=== PATIENT | male | born 1935 | race Caucasian/White ===

== ENCOUNTER 2019-10-27 16:14 | Inpatient (IN) | payer MEDICARE ==
[~2019-10-27] VITALS: Wt 80.8 kg
[2019-10-27] MEDS ORDERED: LOSARTAN POTASS50 M1 PO (17:33)
[2019-10-27] MEDS ORDERED: EXELON1 EACH T (17:35)
[2019-10-27] MEDS ORDERED: B121000 MCG/1 IM (17:35)
[2019-10-27] MEDS ORDERED: NAMENDA-28 PO (17:37)
[2019-10-27] MEDS ORDERED: METOPROLOL SUCC50 M1 PO (17:37)
[2019-10-27] MEDS ORDERED: REMERON15 M2 PO (17:38)
[2019-10-27] MEDS ORDERED: ELIQUIS2.5 M1 PO (17:40)
[2019-10-27 22:40] VITALS: BP 143/76
--- NOTE | 2019-10-27 22:40 | NUR ---
MANUEL IRVIN a 83 year old M admitted via ambulance from the ADMITTING as a voluntary admission. Arrived on unit at 2240. ALLERGIES: TETANUS IMMUNE GLOBIN, TETANUS TOXOIDS,BEE STINGS. Vital signs are: [id number] . The client-POA signed the following forms with stated understanding: Authorization For The Release of Medical Information, Consent to Voluntary Admission and Hospitalization, Consent and Release Forms/Receipt of Rights, Acknowledgement of Advance Directive Information, Behavioral Health Consent Form, and Informed Consent of Medications. Admitted under the services of Dr. ELDON PIEDRA,[facility]. A search was conducted and hazardous articles were removed. Client was oriented to the unit. MYRONTJ PATIENT ADMITTED ONTO THE UNIT WITH 2 AMBULANCE ATTENDANTS AND RELATIONSHIP MANAGER X 1. THIS NURSE AND MENTAL HEALTH WORKER SIGNED CLOTHING LIST. NO MEDICATIONS FROM FACILITY. REMOVED SILVER STRETCH WATCH FROM PATIENT'S LEFT WRIST ON ADMISSION. PATIENT CAME TO UNIT FROM [facility] [place] [facility]. PATIENT WITH GLASSES. NO HEARING AID OR DENTURES PRESENT. PATIENT WITH SMALL SCATTERED SCABS TO BILATERAL ANTERIAL LOWER EXTREMITIES AND TOP OF HEAD. PATIENT TOENAILS CHIPPED, DISCOLORED, AND THICK
--- NOTE | 2019-10-27 23:00 | NUR ---
MESSAGE LEFT FOR HOUSE PLAYER UPDATING ABOUT PATIENT ADMISSION AND LEGAL STATUS
--- NOTE | 2019-10-27 23:03 | NUR ---
DR COPPOLA CALLED ON PHONE NUMBER [phone] AND UPDATED ABOUT PATIENT AND PATIENT UNDER DR POLLARD FOR MEDICAL MANAGEMENT
--- NOTE | 2019-10-27 23:08 | NUR ---
DR RIVERS ON UNIT TO SEE PATIENT
--- NOTE | 2019-10-28 01:15 | NUR ---
P-CONFUSION, IRRITABLE, INTRUSIVE. DISRUPTIVE, DEMANDING, SEXUAL INAPPROPRIATE I-REDIRECTION WITH 1:1 THERAPEUTIC INTERVENTION AND PRESENT REALITY. EDUCATE AND ENCOURAGE MEDICATION COMPLIANT R-PATIENT CLIMBING OUT OF BED AT HS. PATIENT STATING "I WANT TO GO TO MY ROOM. WHO IS THAT PERSON OVER THERE? THIS IS NOT MY HOME". PATIENT REFUSED TO LAY DOWN IN BED AT THIS TIME. PATIENT UP TO [facility]. PATIENT DEMANDING NURSING STAFF TO TAKE HIM HOME. PATIENT YELLING OUT, SEXUALLY INAPPROPRIATE, AND HITTING OBJECTS. PATIENT STATING "I'LL LINE ALL THREE OF YOU UP AND KISS YOUR CROTCHES IF THAT'S WHAT IT TAKES FOR ME TO GO HOME". PATIENT DEMANDING NURSING TO TAKE HIM TO THE BATHROOM AND THEN STATED "I REALLY DON'T HAVE TO GO TO THE BATHROOM. I WAS JUST SEEING IF YOU WOULD TAKE ME. PATIENT OFFERED FLUIDS AND PATIENT THREW WATER ON FLOOR. PATIENT SPIT OUT ATIVAN 1MG PO. PATIENT MEDICATED WITH ATIVAN 1MG IM. ATIVAN WITH EFFECTIVE RESULTS AT THIS TIME AND PATIENT WITH NO BEHAVIORS AT THIS TIME P-CONTINUE TO ENCOURAGE MEDICATION COMPLIANCE, CONTINUE TO PRESENT REALITY, ENCOURAGE GROUP THERAPY WHILE AWAKE
--- NOTE | 2019-10-28 06:27 | NUR ---
PATIENT SLEPT 5 HOURS OF INTERRUPTED SLEEP THROUGHOUT SHIFT. Q 15 SAFETY CHECKS MAINTAINED. 24 HR chart check completed.
[2019-10-28 06:41] LABS: BASO % 0.3 % (0.0-1.0); EOS % 0.3 % (1.0-4.0); HEMATOCRIT 38.2 % (42.0-52.0); HEMOGLOBIN 12.1 g/dl (14.0-18.0); LYMPH # 1.1 10*3/uL (1.3-4.4); LYMPH % 9.5 % (27.0-41.0); MEAN CELL VOLUME 102.7 fl (80.0-94.0); MEAN CORPUSCULAR HGB 32.5 pg (27.0-31.0); MEAN CORPUSCULAR HGB CONC 31.7 g/dl (33.0-37.0); MEAN PLATELET VOLUME 9.9 fl (9.6-12.3); MONO # 0.6 10*3/uL (0.1-1.0); NEUT # 10.1 10*3/uL (2.3-7.9); NEUT % 84.6 % (47.0-73.0); PLATELET COUNT AUTOMATED 221 10*3/uL (130-400); RED BLOOD COUNT 3.72 10*6/uL (4.50-5.90); RED CELL DISTRI WIDTH 13.3 % (0-14.5); WHITE BLOOD COUNT 11.9 10*3/uL (4.8-10.8)
[2019-10-28 07:01] LABS: ALBUMIN 3.5 gm/dl (3.1-4.5); ALKALINE PHOSPHATASE 78 U/L (45-117); BUN 27 mg/dl (7-24); CHLORIDE 106 mmol/L (98-107); CHOLESTEROL 190 mg/dL (<200); CREATININE 1.37 mg/dL (0.70-1.30); HDL CHOLESTEROL 55 mg/dl (40-60); LDL CHOLESTEROL 122 mg/dL (9-159); POTASSIUM 4.3 mmol/L (3.5-5.1); SGOT/AST 15 IU/L (3-35); SGPT/ALT 18 U/L (12-78); SODIUM 137 mmol/L (136-145); TOTAL PROTEIN 7.6 gm/dL (6.4-8.2); TRIGLYCERIDES 66 mg/dl (<150); VLDL CHOLESTEROL 13 mg/dL (6-40)
[2019-10-28 07:52] LABS: VITAMIN D, 25-HYDROXY 25.3 ng/mL (30-100)
[2019-10-28 08:00] VITALS: BP 108/67
--- NOTE | 2019-10-28 11:13 | NUR ---
PSYCHOSOCIAL HX COMPLETED THIS DATE.
--- NOTE | 2019-10-28 11:56 | NUR ---
AM GROUP/CHADIAN NEW YEAR PT IN ATTENDANCE BUT SLEPT ENTIRE GROUP. PT DID NOT WAKE UNTIL LUNCH TIME. PT WILL CNTINUE TO ATTEND FUTURE GROUP SESSION AND BE ENCOURAGED TO PARTICIPATE TO BEST OF PT ABILITY.
[2019-10-28 15:31] LABS: BILIRUBIN NEGATIVE (NEGATIVE); CLARITY CLEAR (CLEAR); COLOR YELLOW (YELLOW); GLUCOSE NEGATIVE (NEGATIVE); KETONE TRACE (NEGATIVE)
[2019-10-28 15:32] LABS: BLOOD TRACE-INTACT (NEGATIVE); LEUKO ESTERASE NEGATIVE (NEGATIVE); NITRITE NEGATIVE (NEGATIVE); UROBILINOGEN 0.2 E.U./dl (0.2-1.0)
[2019-10-28 15:40] LABS: BACTERIA TRACE; EPITHELIAL CELLS 0-2; RBC 0-2 rbc/hpf (0-2); WBC 0-2 wbc/hpf (0-5)
--- NOTE | 2019-10-28 15:45 | NUR ---
PM GROUP/ART/MUSIC PT IN ATTENDANCE, BUT EXPRESSES AGITATION DUE TO WANTING TO GO HOME. THIS STAFF REDIRECTS PT MULTIPLE TIMES. PT SOON FORGETS ABOUT GOING HOME AND ATTEMPTS TO DO ART PROJECT AFTER OBSERVING ANOTHER PEER PAINTING. PT EXPRESSES CONFUSION BY STATING THINGS LIKE "MY SON IS IN PENITENTIARY" AND THEN "MY SON IS " THEN GOES ONTO STATE "MY SON IS ON HIS WAY HOME FROM PENITENTIARY TODAY". PT FINALLY RELAXES AND IS WATCHING A WESTERN. PT WILL CONTINUE OT ATTEND AND PARTICIPATE IN FUTURE GROUP SESSIONS TO BEST OF PT ABILITY.
--- NOTE | 2019-10-28 18:09 | NUR ---
PT REFUSED ASSESSMENT. PT STATED THE PRESIDENT IS ALLEN. MEDICATION COMPLIANT. DR POLLARD ON UNIT TO SEE PT AT 1020. PT AGITATED AT TIMES. EASILY REDIRECTED. BEHAVIORS MONITORED WIOTH Q15 MINUTE SAFETY CHECKS. SEE [facility] FLOWSHEET FOR SPECIFIC MONITORING.
[2019-10-28 20:00] VITALS: BP 132/70
--- NOTE | 2019-10-28 21:35 | NUR ---
P--CONFUSION, AGGITATION, POOR LONG AND SHORT TERM MEMORY I--TRIED TO REORIENT TO PLACE DATE AND TIME. DISCUSSED MEDICATIOS. EMOTIONAL SUPPORT PROVIDED. REDIRECTION PROVIDED. BROUGHT CLOSER TO NURSES DESK HE REFUSED TO STAY IN BED AND GAIT IS UNSTEADY. VISTARIL GIVEN FOR INCREASED AGGITATION, POUNDING ON TABLE AND YELLING R--I NEED TO PHONE TO CALL SOMEONE HERE. PUT ME IN BED, GET ME UP. UNABLE TO COMPREHEND REDIRECTION P--CONTINUE TO MONTIOR FOR CHANGES IN BEHAVIOR/MOOD. MONITOR Q 15 MINUTES AND PRN FOR SAFETY
--- NOTE | 2019-10-28 22:17 | NUR ---
APPEARS TO BE RESTING QUIET SINCE BEING MEDICATED WITH VISTARIL
--- NOTE | 2019-10-29 01:06 | NUR ---
ASSIST OF 2 NEEDED TO TOILET. INCONTINENT OF LARGE AMOUNT URINE. FOUL SMELLING FLATUS NOTED
--- NOTE | 2019-10-29 06:08 | NUR ---
SLEPT INTERMITTENTLY AFTER 2300PM
--- NOTE | 2019-10-29 07:23 | NUR ---
PT YELLING, CURSING, VERBALLY AND PHYSICALLY AGGRESSIVE WITH STAFF AT THIS TIME. PT HAS BEEN TOLIETED, FOOD AND FLUIDS OFFERED. ALL NONPHARMALOGICAL INTERVENTIONS PROVE INEFFECTIVE. BEHAVIORS CONTINUE TO ESCALATE. EDILBERTO PMHNP-BC ON UNIT AT THIS TIME. GAVE VERBAL ORDER TO GIVE PT ATIVAN 1MG IM AT THIS TIME. MEDICATION ADMINISTERED ORDERED. WILL MONITOR FOR EFFECTIVENESS.
[2019-10-29 07:51] VITALS: BP 140/80
--- NOTE | 2019-10-29 08:00 | NUR ---
PRN EFFECTIVE AT THIS TIME. PT RESTING QUIETLY
--- NOTE | 2019-10-29 08:58 | NUR ---
Patient resting quietly with no c/o discomfort. Respirations easy and regular. Vital signs stable. No overt distress. GIVENS,HUSSEIN
--- NOTE | 2019-10-29 17:14 | NUR ---
ALERT TO PERSON. ANGRY/IRRITABLE AND DISRUPTIVE MULTIPLE TIMES THROUGH OUT THE DAY. PT REDIRECTED WITH LITTLE TO NO EFFECTIVENESS. PT REMOVED FROM DINNINGROOM MULTIPLE TIMES. 1:1 PROVIDED FOR THERAPEUTIC COMMUNICATION HOWEVER INEFFECTIVE. BEHAVIORS MONITORED WITH Q15 MINUTE SAFETY CHECKS. SEE [facility] FLOWSHEET FOR SPECIFIC MONITORING
[2019-10-29 20:00] VITALS: BP 141/68
--- NOTE | 2019-10-29 20:40 | NUR ---
CLIENT FED SELF BUT ENDDEN UP THROWING THIS CUP ACROSS ROOM AND POURING PUDDING ON HIMSELF. YELLING AT STAFF. MEDICATION COMPLIANT. VISTARIL GIVEN TO HELP HIM RELAX
--- NOTE | 2019-10-29 22:27 | NUR ---
REFUSES ALL ORAL CARE. TRIED TO BITE STAFF WHEN ATTEMPTED. VISTARIL NOT EFFECTIVE LAST NIGHT. WILL CONTINUE TO MONITOR
--- NOTE | 2019-10-30 00:33 | NUR ---
DEPENDS CHANGED. CLIENT PERMITTED ORAL CARE. PLACED IN BED.
--- NOTE | 2019-10-30 00:42 | NUR ---
24 HR chart check completed.
--- NOTE | 2019-10-30 01:30 | NUR ---
UNABLE TO KEEP IN BED AND DRESSED. CUSSING AND YELLING AT STAFF. TOOK 3 STAFF TO GET HIM INTO CHAIR. BROUGHT TO DININGROOM FOR CLOSER OBSERVATION
--- NOTE | 2019-10-30 03:42 | NUR ---
has been sleeping soundly since being brought to the diningroom
--- NOTE | 2019-10-30 06:09 | NUR ---
SLEPT POOR. SLEPT LESS THAN 1.5 HOURS. UP TO BATHROOM TWICE PLUS CHANGED AFTER INCONTINENCE
[2019-10-30 07:38] VITALS: BP 113/64
--- NOTE | 2019-10-30 08:00 | NUR ---
Treatment Plan meeting was held with Dr. Grayson, FOSTER Romero, RN, AT, APPLIED TECHNOLOGIST-S and Service Supervisor in attendance. Plan for discharge when stable. Pt. came to [facility] from [place]. Will reach out to facility today to discuss discharge Planning.
--- NOTE | 2019-10-30 10:20 | NUR ---
Left Message with Sonia Garcia at [facility] [place] to discuss discharge Planning [phone].
--- NOTE | 2019-10-30 10:54 | NUR ---
Spoke with Sonia Garcia at [facility]. Pt. is LTC at facility and will return at discharge. Pt. was receiving Therapy at facility.
--- NOTE | 2019-10-30 11:52 | NUR ---
NO AM GROUP THERAPY DUE TO NEW PT ASSESSMENTS
--- NOTE | 2019-10-30 15:23 | NUR ---
P: IRRITABLE MOOD, CURSING, YELLING AT STAFF, BEING DISRUPTIVE IN DINING ROOM. I: ONE ON ONE AND REDIRECTION, CHANGE OF ENVIRONMENT WITH LOW STIMULI AND PROVIDING SPACE. R: CHANGE OF ENVIRONMENT AND PROVIDING SPACE EFFECTIVE. PATIENT IS ALERT TO SELF WITH CONFUSION; ABLE TO VOICE NEEDS. RECALLS MONTH FEBRUARY OR MARCH. MOOD IS ANGRY/IRRITABLE. DENIES ANY HALLUCINATIONS, DELUSIONS, HI/SI OR PAIN. CAN BE RESTLESS AND DEMANDING AT TIMES. 1-2 PERSON ASSIST WITH ACTIVITIES OF DAILY LIVING. CONTINENT OF BOWEL AND BLADDER. SET UP FOR MEALS, INTAKES ARE GOOD WITH ADEQUATE FLUIDS. Q 15 MINUTES SAFETY CHECKS. MEDICATION COMPLAINT. P: CONTINUE TO MONITOR MOOD, AGGRESSION, VOICED THOUGHTS OF HI/SI. PROVIDE ONE ON ONE AND REDIRECTION NEEDED
--- NOTE | 2019-10-30 15:36 | NUR ---
PM GROUP PT WAS BROUGHT INTO GROUP AND WAS AGITATED AND TRYING TO GET OUT OF HIS CHAIR WITH NO AWARENESS FOR HIS SAFETY. PT WAS VERBALLY ABUSIVE TOWARD THIS POWDER WORKER TNT AND WAS REMOVED BY THE NURSE. UPON LEAVING GROUP, PT ATTEMPTED TO KICK ME AND STATED, "WALK BY ME AGAIN AND I WILL KICK YOU!" PT WAS TOLD THAT THIS WAS NOT NICE AND I WAS SORRY THAT HE FELT THAT WAY. PT STATED, "I WISH I WOULD'VE GOTTEN YOU, I WILL DREAM ABOUT KICKING YOU FOR THE REST OF MY LIFE! YOU GO TO HELL!"
[2019-10-30 19:50] VITALS: BP 134/61
--- NOTE | 2019-10-30 20:45 | NUR ---
EVENING/LEISURE SKILLS PT UNABLE TO ATTEND/PARTICIPATE DUE TO AGITATION/CONFUSION THAT INTERUPTS PEERS.
--- NOTE | 2019-10-30 21:41 | NUR ---
Patient alert to self only with confusion noted. Memory deficits noted. Patient calm and cooperative with underlying irritability noted at this time. No overt s/s of responding to internal stimuli noted at this time. Patient compliant with HS medications without any difficulty. Attempted to redirect/reorient but unreceptive at this time. Attempted to provide 1:1 for emotional support but patient is drowsy at this time. Patient in gerichair across from nurses' desk to observe moods/behaviors. Plan to continue to encourage medication compliance and continue to provide emotional support. Also continue to redirect/reorient when needed/appropriate. Will continue to monitor moods/behaviors. Q 15 minute safety checks continued and maintained. See [facility] flowsheet for further documentation.
[2019-10-31 07:07] LABS: ALBUMIN 3.2 gm/dl (3.1-4.5); POTASSIUM 4.7 mmol/L (3.5-5.1)
[2019-10-31 07:08] LABS: CREATININE 1.38 mg/dL (0.70-1.30); TOTAL PROTEIN 7.1 gm/dL (6.4-8.2)
--- NOTE | 2019-10-31 07:56 | NUR ---
DR. LIVINGSTON NOTIFIED OF PODIARTY CONSULT FOR NAIL CARE.
--- NOTE | 2019-10-31 08:00 | NUR ---
Treatment Plan meeting was held with Dr. Grayson, FOSTER Romero, RN, AT, ESTIMATOR PRINTING-S and Inspector Casing in attendance. Plan for discharge Next week. Pt. will return to [place] [facility] [place] at discharge.
[2019-10-31 08:14] VITALS: BP 123/70
--- NOTE | 2019-10-31 09:15 | NUR ---
Occupational therapy orders received and OT Evaluation completed in fll on floor three. Patient precautions include fall risk, chair alarm, decreased cognition, poor command follow. Per OT eval, OT recommends patient return to his SNF. Patient would benefit from continued OT treatment to maximize safety and independence with ADLs and [place], [address]. Thank you for the referral. Carmen Boyer, OTR/L
--- NOTE | 2019-10-31 11:16 | NUR ---
PHYSICAL THERAPY Eval completed as able full report to follow moderate level of complexity 60684. Recomend return to facility with f/u PT as appropriate. Pt unable to give any background reg functional status, spoke w CM/nsg and do not have any information reg pt's prior level of function. Obtained phone number for facility where pt resides and left message on therapy answering system to contact PT dept, no pt information was left on message only to contact PT dept will await further information regarding pt and set goals accordingly. Sofia Mijares PT Sofia Mijares PT
--- NOTE | 2019-10-31 11:43 | NUR ---
AM GROUP PT IS UNABLE TO ATTEND GROUP THERAPY AT THIS TIME DUE TO COGNITIVE IMPAIRMENT AND DISRUPTION TO THE YI MILIEU. PT WAS IN THE DYE WITH NURSE.
--- NOTE | 2019-10-31 15:27 | NUR ---
Shift chart check completed.
--- NOTE | 2019-10-31 15:45 | NUR ---
PM GROUP PT IS UNABLE TO ATTEND GROUP THERAPY AT THIS TIME DUE TO COGNITIVE IMPAIRMENT AND BEING A DISRUPTION TO THE YI MILIEU
--- NOTE | 2019-10-31 18:15 | NUR ---
PATIENT IS ALERT TO SELF WITH CONFUSION; ABLE TO VOICE NEEDS. LONG/SHORT TERM MEMORY DIFICITS. MOOD IS DEPRESSED AND IRRITABLE AT TIMES. CAN BE DEMAMDING AT TIMES. NO VOICED STATEMENTS OF HI/SI OR PAIN. NO RESPONSE TO INTERNAL STIMULI OBSERVED. MEDICATION COMPLIANT. Q 15 MINUTE SAFETY CHECKS MAINTAINED. 2 PERSON ASSIST WITH ACTIVITIES OF DAILY LIVING. CONTINENT OF BOWEL AND BLADDER, SET UP FOR MEALS, INTAKES ARE FAIR. INTERACTIVE WITH STAFF AND ATTENDED AFTERNOON GROUP SESSION. NO AGGRESSION OBSERVED. CONTINUE TO MONITOR FOR AGGRESSION. PROVIDE ONE ON ONE AND REDIRECTION/ORIENTATION NEEDED.
[2019-10-31 20:00] VITALS: BP 110/62
--- NOTE | 2019-10-31 20:30 | NUR ---
EVENING/LEISURE SKILLS PT IN ATTENDANCE BUT SLEEPING ON AND OFF IN CHAIR. PT REMAINED QUIERT TO SELF WHEN AWAKE WITH NO AGITATION OR AGGRESSION EXPRESSED AT THIS TIME. PT WILL CONTINUE TO ATTEND FUTURE GROUP SESSIONS.
--- NOTE | 2019-10-31 21:28 | NUR ---
Patient alert to self only with confusion noted. Memory deficits noted. Patient calm and cooperative with underlying irritability noted at this time. No overt s/s of responding to internal stimuli noted at this time. Patient compliant with HS medications without any difficulty. Redirected/reoriented when needed/appropriate. Provided 1:1 for emotional support. Patient in gerichair in diningroom during snacks with other patients. Patient talking to other patients and staff. Plan to continue to encourage medication compliance and continue to provide emotional support. Also continue to redirect/reorient when needed/appropriate. Will continue to monitor moods/behaviors. Q 15 minute safety checks continued and maintained. See [facility] flowsheet for further documentation.
--- NOTE | 2019-11-01 00:08 | NUR ---
24 HR chart check completed.
--- NOTE | 2019-11-01 05:47 | NUR ---
Patient slept approx. 6.5 hours throughout shift. Q 15 minute safety checks continued and maintained.
--- NOTE | 2019-11-01 07:20 | NUR ---
PHYSICAL THERAPY Patient seen this am for therapy visit and was sitting semi reclined in activity room Aniya chair upon therapist arrival. Patient identified by name / and presented with increased cervical flexion contracture. Patient needed both verbal / tactile cues to improve seated posture, especially cervical extension secondary to chin resting on chest. Patient very guarded with increased cervical / upper trap tightness and performed multiple sit to stand transfers at rail, MOD/COMMUNITY WORKER x 2, including B UE handrail support. Patient demonstrated severe "slouched" posture, requiring v/c's to correct. Patient states it is painful to lift head up and tolerated approx 1 minute static stand each trial. Patient returned to Aniya chair and tranported to activity room for breakfast. OT assistant drafter was present for observation only this session as patient remained under [facility] staff Supervision. Will continue per POC as tolerated, total treatment time 14 minutes. Devonte Dwyer, ROLL OUT MANAGER
--- NOTE | 2019-11-01 07:30 | NUR ---
OT NOTE Pt was seen this A.M. 1:1 for 15 minute OT session with PROCESSING TECHNICIAN and nursing staff present for observation only. Upon arrival pt was sitting semi reclined in the baldo chair in the dining umanzor. Pt identified by name and and had no complaints at this time. Pt was taken out into the hallway where he completed multiple sit to stand transfers from chair level with modA X 2 and use of hand rail for UE support. Challenged pt's static standing tolerance needed for increased I in self care tasks and functional transfers, pt was able to tolerate aprox 40-60 seconds at a time before sitting due to fatigue. throughout pt required verbal prompts for correcting his posture and holding his head up. Pt was left sitting upright in the baldo chair in the dining umanzor with body alarm activated for safety and under [facility] staff supervision. Continue with POC as able. FABRICE Massey/Daniel
[2019-11-01 08:27] VITALS: BP 135/62
--- NOTE | 2019-11-01 09:05 | NUR ---
DENNIS TALENT MANAGEMENT SPECIALIST ON UNIT TO SEE PT AT THIS TIME.
--- NOTE | 2019-11-01 11:40 | NUR ---
AM GROUP/EXERCISE AND BRAIN GAMES PT ATTENDED MORNING GROUP THERAPY AND PARTICIPATED IN THE EXERCISES TO THE BEST OF HIS ABILITY. PT BECAME FOCUSED ON USING THE PHONE AND REPEATEDLY ASKED BUT WAS PATIENT WHEN TOLD THAT HE COULD AT 11:30 WHEN GROUP WAS OVER. PT WAS ASKED, "DO YOU WANT TO CALL YOUR ?" PT STATED, "NO, SHE'S " AT THE END OF GROUP PT WAS GIVEN THE PHONE AND SPOKE TO , ADRIANA AND RETURNED TO THE DAY ROOM. WHEN ASKED IF HE SPOKE TO HIS ? PT STATED, "NO, I BURIED HER" PT WAS REMINDED THAT HE JUST SPOKE WITH HER ON THE PHONE. PT STATED, "NO I DIDN'T, I DIDN'T TALK TO ANYONE ON THE PHONE"
--- NOTE | 2019-11-01 13:48 | NUR ---
Treatment Plan meeting was held with Dr. Grayson, FOSTER Romero, RN, AT, CASE RESOLUTION SPECIALIST-S and Educational Psychologist in attendance. Plan for discharge Next week with return to [facility].
--- NOTE | 2019-11-01 13:49 | NUR ---
Clinical Updates faxed to [facility].
--- NOTE | 2019-11-01 15:38 | NUR ---
PM GROUP/WATERCOLORS AND MUSIC PT WAS PRESENT FOR AFTERNOON GROUP THERAPY RECLINED IN A RAISA CHAIR LISTENING TO THE MUSIC WITH HIS EYES SHUT. PT WAS NOTED TO BE TAPPING ALONG TO THE SONGS. PT EXHIBITED NO AGITATION OR AGGRESSION WHILE IN GROUP.
--- NOTE | 2019-11-01 18:24 | NUR ---
P- CONFUSION. PT CONTINUES TO BELIEVE HIS HAS DEPSITE REMINDERS AND TALKING TO HER ON THE PHONE THIS AFTERNOON. NO PHYSICALLY AGGRESSIVE BEHAVIORS DISPLAYED THIS SHIFT. PT PLEASANT AND COOPERATIVE. I- ORIENTATION, MOOD AND BEHAVIORS ASSESSED. ASSESSED PT FOR SI/HI, INTENT OR PLAN. ASSESSED PT FOR S/S HALLUCINATIONS, PARANOIA AND/OR DELUSIONS. MEDICATIONS ADMINISTERED PER PHYSICIAN'S ORDERS. ASSISTANCE WITH ADL CARE PROVIDED NEEDED. ENCOURAGED PT TO ATTEND AND PARTICIPATE IN YI MILIEU GROUPS AND ACTIVITIES. R- PT IS ALERT AND ORIENTED TO NAME ONLY. OTHERWISE CONFUSED. WHEN ASKED PT WHERE HE WAS THIS MORNING PT STATES "HERE". THIS RN ASKED PT WHAT KIND OF PLACE "HERE" WAS, PT STATES "I DON'T KNOW, BUT IT'S A NICE PLACE". ST/LT MEMORY GAPS NOTED. RESPS EASY AND EVEN ON ROOM AIR. MOOD STABLE THIS DATE WITH APPROPRIATE AFFECT. PT CALM, PLEASANT AND COOPERATIVE. PT DENIES SI/HI, INTENT OR PLAN. PT DENIES HALLUCINATIONS, NO RESPONSE TO INTERNAL STIMULI NOTED. PT CONTINUES TO BELIEVE HIS HAS PASSED DESPITE STAFF REMINDERS TO THE CONTRARY AND THE PT HIMSELF TALKED TO HER ON THE PHONE THIS AFTERNOON. PT IS MED COMPLIANT WITHOUT DIFFICULTY. NO PHYSICALLY AGGRESSIVE BEHAVIORS DISPLAYED. NO DISTRESS NOTED. P- PLAN TO CONTINUE CURRENT TREATMENT, CONTINUE TO MONITOR MOOD AND BEHAVIORS, PROVIDE APPROPRIATE REORIENTATION, REDIRECTION AND 1:1 NEEDED. CONTINUE TO ENCOURAGE MEDICATION COMPLIANCE WELL GROUP ATTENDANCE AND PARTICIPATION.
[2019-11-01 19:42] VITALS: BP 132/65
--- NOTE | 2019-11-01 21:00 | NUR ---
P--CONFUSION, POOR GAIT I--GAVE CLIENT 1:1 TIME. REVIEWED MEDICATION. REPOSITIONED NECK. OFFERED EMOTIONAL SUPPORT. MONITORED BEHAVIORS R--MY NECK HURTS. ORIENTED TO SELF. MEDICATION COMPLIANT. NO BEHAVIORS NOTED P--MONITOR FOR CHANGES IN MOOD/BEHAVIOR. MONITOR Q 15 MINUTES AND PRN FOR SAFETY
--- NOTE | 2019-11-02 00:43 | NUR ---
24 HR chart check completed.
--- NOTE | 2019-11-02 07:23 | NUR ---
OT NOTE Pt was seen this A.M. 1:1 for 23 minute OT session with PLATING TECHNICIAN and nursing staff present for observation only. Upon arrival pt was sitting upright in the baldo chair in the dining umanzor. Pt identified by name and and had no complaints at this time. Pt was taken out into the hallway where he completed sit to stand from chair level with modA x 2 and use of w/w for UE support. Challenged pt's static standing tolerance needed for increased I in self care tasks and functional transfers, pt was able to tolerate aprox 3 minutes at a time before sitting due to fatigue. Functional mobility was then completed to his bedroom with Grace and use of w/w. Pt then sat sink side while completing grooming task of washing his hands and face with Grace for assist with set up of task and sequencing. Throughout entire session pt was able to keep his eyes open 100% of the time with no verbal prompts. Pt was left sitting semi reclined in the baldo chair in the dining umanzor with lap tray in place, body alarm activated for safety, and under [facility] staff supervision. Continue with POC as able. FABRICE Massey/Daniel
--- NOTE | 2019-11-02 07:45 | NUR ---
PT AWAKE, ALERT AND VERBAL. PLEASANT. RESPS EASY AND EVEN ON ROOM AIR. EATING BREAKFAST IN DINING ROOM WITH PEERS. NO DISTRESS NOTED.
--- NOTE | 2019-11-02 07:53 | NUR ---
PHYSICAL THERAPY Patient seen this am for therapy visit and was semi reclined in activity room Aniya chair upon therapist arrival. Patient identified by name / and presented with improved seated "head up" posture. OT printer floor covering assistant was present for observation only this session as patient reports no new c/o's at this time. Patient transfers sit to stand MOD A x 2 and ambulates 40'x 1, use of wh walker, MIN A, while demonstrating decreased "shuffling" stride. Patient needed v/c to increase "head up" posture with increased stride and improved walker safety / navigation. Patient also fatigues quickly and returned to Aniya chair in activity room. Patient remained under [facility] staff Supervision with body alarm for safety. Will continue per POC as tolerated. Total treatment time 14 minutes. Devonte Dwyer, THERMOFORMING MACHINE OPERATOR
--- NOTE | 2019-11-02 08:00 | NUR ---
Treatment Plan meeting was held with Dr. Grayson, RN, AT and Business Management Analyst. Plan for discharge next week with return to [place] [facility] [place].
[2019-11-02 08:08] VITALS: BP 125/64
--- NOTE | 2019-11-02 08:08 | NUR ---
PT MED COMPLIANT WITH AM MED PASS. ALERT, VERBAL AND PLEASANTLY CONFUSED. NO AGGRESSIVE BEHAVIORS AT THIS TIME. NO DISTRESS NOTED.
--- NOTE | 2019-11-02 09:37 | NUR ---
ON UNIT TO SEE PT AT THIS TIME, UPDATE GIVEN.
--- NOTE | 2019-11-02 11:45 | NUR ---
AM GROUP PT WAS PRESENT FOR MORNING GROUP THERAPY RECLINED IN A RAISA CHAIR SLEEPING. PT DID NOT WAKE DURING GROUP
--- NOTE | 2019-11-02 11:45 | NUR ---
PT RESTING QUIETLY IN CHAIR AWAITING LUNCH AT THIS TIME. NO BEHAVIORS OF THIS TIME.
--- NOTE | 2019-11-02 15:38 | NUR ---
PM GROUP PT WAS PRESENT FOR AFTERNOON GROUP THERAPY BUT IS UNABLE TO PARTICIPATE AT THIS TIME DUE TO COGNITIVE IMPAIRMENT. PT SAT QUIETLY AND OBSERVED, LISTENED TO MUSIC AND NAPPEC. PT EXHIBITED NO AGITATION OR AGGRESSION WHILE IN GROUP
--- NOTE | 2019-11-02 16:57 | NUR ---
P- PLEASANTLY CONFUSED. INCREASED RESTLESSNESS NOTED IN EVENING HOURS, PT BECOMING AGITATED UPON ATTEMPTS TO REDIRECT. I- ORIENTATION, MOOD AND BEHAVIORS ASSESSED. ASSESSED OT FOR SI/HI, INTENT OR PLAN. ASSESSED PT FOR S/S HALLUCINATIONS, PARANOIA AND/OR DELUSIONS. MEDICATIONS ADMINISTERED PER PHYSICIAN'S ORDERS. ASSISTANCE WITH ADL CARE PROVIDED NEEDED. ENCOURAGED PT TO ATTEND AND PARTICIPATE IN YI [facility] GROUPS AND ACTIVITIES. R- PT IS ALERT AND ORIENTED TO SELF ONLY, OTHERWISE CONFUSED. ST/LT MEMORY GAPS NOTED. RESPS EASY AND EVEN ON ROOM AIR. MOOD STABLE AND PLEASANT THIS AM. PT DENIES SI/HI, INTENT OR PLAN. PT DENIES HALLUCINATIONS, NO RESPONSE TO INTERNAL STIMULI NOTED. NO PARANOIA OR DELUSIONS NOTED. MEDICATION COMPLIANT WITHOUT DIFFICULTY. BEGINNING AROUND 4:30PM PT HAS BEEN NOTED WITH INCREASED CONFUSION, RESTLESSNESS AND IRRITABILITY, PT BECOMING SLIGHTLY AGITATED UPON ATTEMPTS TO REDIRECT, PT STATING "GET ME THE HELL OUT OF HERE", UPON ATTEMPTS TO REORIENT/REDIRECT PT HE BECOMES VERBALLY AGITATED STATING "GOD DAMN IT YOU'RE USELESS" TOLIETING COMPLETED. PT GIVEN FOOD/FLUIDS. PT IN LOW STIMULATION AREA AT THIS TIME FOR CALMING EATING DINNER AT PRESENT. NO DISTRESS NOTED. P- PLAN TO CONTINUE CURRENT TREATMENT, CONTINUE TO MONITOR MOOD AND BEHAVIORS, PROVIDE APPROPRIATE REORIENTATION, REDIRECTION AND 1:1 NEEDED. CONTINUE TO ENCOURAGE MEDICATION COMPLIANCE WELL GROUP ATTENDANCE AND PARTICIPATION.
--- NOTE | 2019-11-02 17:17 | NUR ---
PT BEHAVIORS CONTINUE TO ESCALATE, PT CONTINUES TO BE RESTLESS, IRRITABLE AND AGITATED UPON REDIRECTION, MULTIPLE NONPHARMALOGICAL ATTEMPTS TO CALM PT HAVE BEEN MADE, TOLIETED, FOOD AND FLUIDS GIVEN, 1:1, REDIRECTION, REORIENTATION, REPOSITIONING AND DISTRACTION HAVE ALL PROVEN INEFFECTIVE. PT BECOMING PHYSICALLY THREATENING, SHAKING FIST AT STAFF. PT GIVEN PRN VISTARIL 50MG PO AT THIS TIME FOR INCREASED AGITATION/AGGRESSION. WILL MONITOR FOR MEDICATION EFFECTIVENESS.
--- NOTE | 2019-11-02 17:47 | NUR ---
SHIFT CHART CHECK COMPLETED.
[2019-11-02 19:52] VITALS: BP 120/62
--- NOTE | 2019-11-03 01:10 | NUR ---
HAS BEEN UP SINCE 2230PM. ONLY LAYED IN BED FOR SHORT TIME. UNABLE TO REDIRECT TO PLACE AND TIME. PLACED IN RAISA CHAIR AND BROUGHT CLOSER TO NURSES FOR CLOSER MONITORING. APPEARS TO HAVE VISUAL/TACTILE HALLUCINATIONS. REACHING FOR UNSEEN THINGS. WILL CONTINUE TO MONITOR FOR CHANGES IN BEHAVIOR/MOOD. EMOTIONAL SUPPORT PROVIDED
--- NOTE | 2019-11-03 04:59 | NUR ---
24 HR chart check completed.
--- NOTE | 2019-11-03 05:41 | NUR ---
BROKEN 3.5 HOURS. UP IN CHAIR WITH INTERMITTENT OUTBURST OF AGGITATION AND YELLING.
--- NOTE | 2019-11-03 07:24 | NUR ---
OT NOTE Pt was seen this A.M. 1:1 for 25 minute OT session with nursing staff present for observation only. Upon arrival pt was sitting upright in the dining umanzor asleep in his baldo chair with lap tray and body alarm in place. Pt was easily aroused and identified by name and . Pt had no complaints at this time. Pt completed BUE towel exercises over all planes of motion for 1 X 15 to increase and restore maximum functional use and an emphasis on triceps for increased I in functional transfers. Pt was then taken out into the hallway where he completed multiple sit to stand transfers from chair level with modA and use of hand rail for UE support. Challenged pt's static standing tolerance needed for increased I and enhanced endurance, pt was able to tolerate aprox 60 seconds at a time before sitting due to fatigue. Throughout pt required verbal prompts for correcting his posture and holding his head up. Pt then completed LB dressing while doffing and donning B socks with Grace for inital start over his toes. Pt was left sitting upright in the baldo chair in the dining umanzor with lap tray in place, body alarm activated for safety, and under [facility] staff supervision. Throughout entire session pt was awake and talkative with this therapist. Continue with POC as able. EFE Massey
[2019-11-03 08:04] VITALS: BP 108/74
--- NOTE | 2019-11-03 11:40 | NUR ---
AM GROUP/BEADING PT WAS IN A RAISA CHAIR WITH THE TRAY ON AT THE START OF GROUP AND ASKED ME, "CAN YOU PUSH ME DOWN TO MY ROOM?" INQUIRED OF PT WHAT HE NEEDED IN HIS ROOM? PT STATED, "MY DECK OF CARDS". PT WAS GIVEN A DECK OF CARDS AND "PLAYED" WITH THEM THE ENTIRE GROUP. PT WAS QUIET AND FOCUSED. PT EXPRESSED NO AGITATION OR AGGRESSION WHILE IN GROUP
--- NOTE | 2019-11-03 12:37 | NUR ---
PATIENT IS ALERT AND ORIENTED TO PERSON WITH CONFUSION; AWARE OF BEING IN THE HOSPITAL. MOOD IS STABLE, CALM AND PLEASANT DEMEANOR. DENIES ANY HALLUCINATIONS, DELUSIONS, HI/SI OR PAIN. MEDICATION COMPLAINT WITH EDUCATION PROVIDED. Q 15 MINUTE SAFETY CHECKS MAINTAINED. 2 PERSON ASSIST WITH ACTIVITIES OF DAILY LIVING, CONTINENT OF BOWEL AND BLADDER. SET UP FOR MEALS, INTAKES ARE GOOD WITH ADEQUATE FLUIDS. INTERACTIVE [facility] NURSIN STAFF. ATTENDED GROUP SESSION. LIKES TO PLAY CARDS. NO AGGRESSION OBSERVED. CONTINUE TO MONITOR MOOD AND AGGRESSION, PROVIDE ONE ON ONE AND REDIRECTION NEEDED.
--- NOTE | 2019-11-03 14:19 | NUR ---
PHYSICAL THERAPY TREATMENT TIME: 1:00 PM - 1:17 PM 17 MINUTES TOTAL Patient presented to therapy in sitting at table in activity room in wheelchair with body alarm attached. FABRICE Angel PRESENT WITNESS FOR THIS TREATMENT. Patient gives informed consent for treatment. Patient was identified by name and on wristband. Patient performed sit to stand from wheelchair with MAX A X 1 with verbal cues for pushing off wheelchair armrests with hands. Patient ambulated with Wh Walker and MIN A X 1 for 30' x 1 with verbal cues for locking knees into extension, upright posture, and pushing down on handles of walker with hands. Patient sit to stand a 2nd time out of wheelchair with MIN A X 1 this time. Patient ambulated with Wh Walker and MIN A X 1 for another 30' x 1 ,again with verbal cues for proper technique. Patient was 1:1 with this GLOST PLACER for 17 minutes total. Patient had multiple episodes of LOB in retrograde back on his heels and has difficulty extending his knees in standing creating a fall risk. Patient was left in wheelchair in activity room with body alarm attached to patient and other staff and patient's present. KATYA CHO GLOST PLACER
--- NOTE | 2019-11-03 14:26 | NUR ---
Clinical Updates faxed to [place] [facility] [place].
--- NOTE | 2019-11-03 14:27 | NUR ---
PATIENT COMPLAINING OF RIGHT SHOULDER AND HEAD PAIN, RATING 10/10. PRN TYLENOL 650MG GIVEN PO.
--- NOTE | 2019-11-03 15:32 | NUR ---
PHYSICAL THERAPY CO-SIGN I approve of the Physical Therapy notes written above. Sofia Mijares PT
--- NOTE | 2019-11-03 15:42 | NUR ---
PM GROUP/MOVIE PT WAS PRESENT AT THE START OF THE MOVIE, WATCHED FOR A LITTLE, ATE POPCORN AND CHIPS THEN BEGAN COMPLAINING OF SEVERE NECK PAIN. PT WAS REFERRED TO NURSE AND DID NOT RETURN
--- NOTE | 2019-11-03 16:12 | NUR ---
OCCUPATIONAL THERAPY CO-SIGN I approve of the Occupational Therapy notes written above. ELVIS ROSAS OTR/Daniel
[2019-11-03 19:06] VITALS: BP 115/61
--- NOTE | 2019-11-03 21:56 | NUR ---
P-CONFUSION, RESTLESS I-REDIRECTION WITH 1:1 THERAPEUTIC INTERVENTIONS AND PRESENT REALTIY. EDUCATE AND ENCOURAGE MEDICATION COMPLIANCE R-PATIENT MEDICATION COMPLIANT WITH HS MEDICATIONS. PATIENT PROVIDED NOURISHMENT AT HS AND PROVIDED FLUIDS. PATIENT RESTLESS AND CLIMBING OUT OF BED WITHOUT ASSISTANCE. PATIENT WITH NO HALLUCINATIONS OR DELUSIONS. PATIENT WITH NO SUICIDAL OR HOMICIDAL IDEATIONS. P-CONTINUE TO ENCOURAGE MEDICATION COMPLAINCE, CONTINUE TO PRESENT REALITY, ENCOURAGE GROUP THERAPY WHILE AWAKE
--- NOTE | 2019-11-04 06:00 | NUR ---
PATIENT SLEPT >8 OF UNINTERRUPTED SLEEP THROUGHOUT SHIFT. Q 15 MINUTE CHECKS MAINTAINED. 24 HR chart check completed.
[2019-11-04 07:35] VITALS: BP 119/58
--- NOTE | 2019-11-04 10:39 | NUR ---
P: ANGRY/IRRITABLE MOOD, CONFUSION, ALERT TO PERSON ONLY I: ATTEMPTED TO REORIENT PT. PROVIDED 1:1 FOR THERAPEUTIC COMMUNICATION. PT REDIRECTED AND OFFERED SNACKS AND DRINKS. MONITORED BEHAVIORS WITH Q15 MINUTE SAFETY CHECKS. ENCOURAGED MEDICATION COMPLAINCE. ENCOURAGED PT TO ATTEND AND PARTICIPATE IN GROUP. R: PT WAS REMOVED FROM DINNINGROOM FOR TOUCHING ANOTHER MALE PT'S CHEST AND WHEN REDIRECTED HE STATED THAT WAS HIS . PT THEN STARTING YELLING AT HIS SO CALLED AND YELLED "YOU FUCKING BITCH". PT THEN REMOVED FROM GROUP FOR YELLING OUT "FUCK". WHEN INTERVIEWING PT HE STATED HIS NAME AND STATED IT WAS 1980. PT STATED HE CAME TO SEE HIS AND SHE DIDNT WANT TO LEAVE. PT THEN STATED HE "FEELS VERY SAD AND DEPRESSED". MEDICATION COMPLAINT WITHOUT DIFFICULTY. PT STATED HE WOULD HARM HIS SELF WITH "WHATEVER I COULD FIND TO DO IT." PT VERBALLY CONTARCTEWD FOR SAFETY. PT STATED HE IS SLEEPING AND EATING OK. AGITATED BEHAVIOR. DEMANDING, DISRUPTIVE, AND RESTLESS. NO HALLUCINATIONS OR DELUSIONS NOTED. PT DENIES HI. P: CONTINUE TO ENCOURAGE MEDICATION COMPLAINCE, INTERACTIONS WITH PEERS AND STAFF. CONTINUE TO PROVIDE 1:1 FOR THERAPEUTIC COMMUNICATION. CONTINUE TO REORIENT PT NEEDED AND MONITOR BEHAVIORS WITH Q15 MINUTE SAFETY CHECKS. FALL PRECAUTIONS MAINTAINED. SEE [facility] FLOWSHEET FOR SPECIFIC MONITORING.
--- NOTE | 2019-11-04 11:35 | NUR ---
LETTY SIMS FACILITY PLANNER ON UNIT TO ASSESS PT. UPDATE PROVIDED.
--- NOTE | 2019-11-04 11:56 | NUR ---
AM GROUP/EXERCISE/MUSIC/LEISURE PT IS IN ATTENDANCE AND PARTICIPATES DURIBNG EXERCISE. PT KEEPS ASKING "WHO CAN I SEE TO GET ME OUT OF HERE?" AND "WHERE IS MY ROOM?" THIS STAFF CONSTANTLY REDIRECTING PT. PT BEGINS TO GET UPSET OVER LEAVING AND IS TAKEN TO QUIET LOW STIMULATION ROOM. PT WILL CONTINUE TO BE ENCOURAGED TO ATTEND AND PARTICIPATE IN FUTRUE GROUP SESSIONS TO BEST OF PT ABILITY.
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
--- NOTE | 2019-11-04 15:57 | NUR ---
PM GROUP/MOVIE/LEISURE PT RESTING AT THIS TIME IN QUIET ROOM. PT WILL CONTINUE TO BE ENCOURAGED TO ATTEND AN DPARTICIPATE IN FUTURE GROUP SESSIONS TO BEST OF PT ABILITY.
[2019-11-04 20:00] VITALS: BP 128/64
--- NOTE | 2019-11-04 20:26 | NUR ---
PATIENT COMPLAINING OF PAIN ALL OVER. PRN TYLENOL 650MG PO GIVEN AT THIS TIME.
--- NOTE | 2019-11-04 21:23 | NUR ---
NO FURTHER COMPLAINTS OF PAIN, PATIENT RESTING IN BED WITH EYES CLOSED. BED ALARM ON.
--- NOTE | 2019-11-05 04:01 | NUR ---
P-CONFUSION, RESTLESS, AGRRESSION I-REDIRECTION WITH 1:1 THERAPEUTIC INTERVENTIONS AND PRESENT REALTIY. EDUCATE AND ENCOURAGE MEDICATION COMPLIANCE R-PATIENT MEDICATION COMPLIANT WITH HS MEDICATIONS. PATIENT PROVIDED NOURISHMENT AT HS AND PROVIDED FLUIDS. PATIENT RESTLESS AND CLIMBING OUT OF BED WITHOUT ASSISTANCE. PATIENT STRIKING OUT AT NURSING STAFF, USING VULGAR LANGUAGE, HITTING OBJECTS,TEARFUL EPISODES, PATIENT YELLING OUT FOR "[place]" PATIENT THREATENING NURSING STAFF STATING "I WILL KILL ALL OF YOU WHORES". PATIENT MEDICATED WITH ATIVAN 1MG IM AND MEDICAION WITH EFFECTIVE RESULTS. P-CONTINUE TO ENCOURAGE MEDICATION COMPLAINCE, CONTINUE TO PRESENT REALITY, ENCOURAGE GROUP THERAPY WHILE AWAKE
--- NOTE | 2019-11-05 05:36 | NUR ---
PATIENT SLEPT 8 HOURS OF INTERRUPTED SLEEP THROUGHOUT SHIFT. Q 15 MINUTE CHECKS MAINTAINED. 24 HR chart check completed.
[2019-11-05 07:59] VITALS: BP 102/63
--- NOTE | 2019-11-05 08:56 | NUR ---
P: PATIENT AGITATED, DISRUPTIVE TO OTHER PATIENTS IN DINING ROOM, REMOVED FROM DINING ROOM TO QUIET ROOM, PATIENT CURSING, SWEARING, DISROBING, ATTEMPTING TO STRIKE OUT AT NURSING STAFF AND ESCULATING. I: ONE ON ONE, REDIRECTION/ORIENTATIONS, CHANGE OF ENVIRONMENT WITH LOW STIMULI. R: INEFFECTIVE. PRN ATIVAN 1MG IM GIVEN IN RIGHT DELTOID. PATIENT CONTINUES TO BE UP IN RAISA CHAIR. PATIENT IS ALERT TO SELF WITH CONFUSION. LONG/SHORT TERM MEMORY DEFICITS. MOOD IS ANGRY/IRRITABLE, ANXIOUS. NO RESPONSE TO INTERNAL STIMULI. NO VOCED STATEMENTS OF HI/SI OR PAIN. 2-3 PERSON ASSIST WITH ACTIVITIES OF DAILY LIVING, INCONTINENT OF BOWEL AND BLADDER. SET UP FOR MEALS, INTAKES VARY. Q 15 MINUTE SAFETY CHECKS. P: PRN ATIVAN 1MG IM TO RIGHT DELTOID. CONTINUE TO MONITOR BEHAVIORS AND AGGRESSION. PROVIDE ONE ON ONE, REDIRECTION/ORIENTATION, QUIET ROOM WITH LOW STIMULI AND PROVIDE SPACE NEEDED.
--- NOTE | 2019-11-05 09:34 | NUR ---
LETTY SIMS CNP ON UNIT TO ASSESS PATIENT.
--- NOTE | 2019-11-05 12:48 | NUR ---
AM GROUP/EXERCISE/MUSIC/COLOR BY NUMBER PT UNABLE TO ATTEND AT THIS TIME DUE TO YELLING OUT PRIOR TO GROUP. PT EVENTUALLY BEGAN RESTING IN LOW-STIMULI ROOM TO HELP CALM PT. PT WILL BE ENCOURAGED TO ATTEND/PARTICIPATE IN GROUP ONCE MORE APPROPRIATE.
--- NOTE | 2019-11-05 15:22 | NUR ---
P: VOICING HALLUCINATIONS. PATIENT IN GERICHIAR, YELLING AT NURSE, WHERE ARE MY SCREWDRIVE. ASSISTED PATIENT WITH REPOSITIONING IN CHAIR. PATIENT STARTED TO SWING ARMS TOWARDS NURSE, YELLING "DON'T TOUCH MY LAWN DRY BOSS OR THE DECK" PATIENT TOOK GOWN OFF" I: ONE ON ONE; REDIRECTION/ORIENTATION AND PROVIDED SPACE R: INEFFECTIVE. PATIENT LOOKING AT NURSE, STATING "STAY AWAY FROM MY DRY BOSS" NURSE PROVIDED REASSURANCE. P: CONTINUE TO MONITOR FOR AGGRESSION, MOOD AND HALLUCINATION. PROVIDE ONE ON ONE FOR EMOTIONAL SUPPORT, REDIRECTION/ORIENTATION AND SPACE NEEDED.
--- NOTE | 2019-11-05 16:00 | NUR ---
PATIENT ASSISTED TO BATHROOM FOR TOILETING NEEDS. PATIENT BECOME AGGRESSIVE WITH HANDS ON CARE AND ACCUSING STAFF OF "BEATING THE SHIFT OUT OF ME" 3 PERSON ASSIST WITH CARE, PATIENT REQUIRED EXTENSIVE ASSIST AND DID NOT HELP OR ASSIST WITH WEIGHT. PATIENT ASSISTED BE BED. TRANSFER STATUS CHANGED TO DILIA PER NURSING JUDGEMENT.
[2019-11-05 20:15] VITALS: BP 119/63
--- NOTE | 2019-11-05 21:26 | NUR ---
Patient alert to self only with confusion noted. Memory deficits noted. Patient sleeping but awakens easily. Patient in gerichair across for nurses' desk to be observed for moods/behaviors. No overt s/s of responding to internal stimuli noted at this time. Patient compliant with HS medications without any difficulty. Redirected/reoriented when needed/appropriate. Provided 1:1 for emotional support. Plan to continue to encourage medication compliance and continue to provide emotional support. Also continue to redirect/reorient when needed/appropriate. Will continue to monitor moods/behaviors. Q 15 minute safety checks continued and maintained. See [facility] flowsheet for further documentation.
--- NOTE | 2019-11-06 00:19 | NUR ---
24 HR chart check completed.
--- NOTE | 2019-11-06 05:34 | NUR ---
Patient slept approx. 7 hours throughout shift. Q 15 minutes safety checks continued and maintained.
--- NOTE | 2019-11-06 07:40 | NUR ---
PHYSICAL THERAPY Patient was semi reclined in Aniya chair within activity room upon therapist arrival this am and presented with increased Lethargic behaviour. OT credit assistant was present as patient was unable to respond to both verbal / tactile stimuli this morning and also presented with increased "drooling" from left side of his mouth. Patient remained in activity room Aniya chair, semi reclined with body alarm and lap tray under U staff Supervision. Will continue per POC as tolerated. Devonte Dwyer, GARBAGE TRUCK HELPER
--- NOTE | 2019-11-06 07:40 | NUR ---
OT NOTE Attempted to see pt this A.M. for OT session and upon arrival pt was sitting semi reclined in the baldo chair with lap tray in place. Pt presented to therapy with lethargic behaviors, unable to aoruse to verbal/tactile stimuli, unable to follow commands, and drooling from the L side of his mouth. Unable to arouse pt at this time, no treatment provided. Will check back at a later time/date and continue with POC as able. FABRICE Massey/Daniel
[2019-11-06 07:53] VITALS: BP 124/63
--- NOTE | 2019-11-06 08:00 | NUR ---
Treatment plan meeting was held with Dr. Grayson, FOSTER Romero, RN, AT, INFECTION CONTROL SPECIALIST-S and Investment Strategist. Plan for discharge Wednesday with Possible Wednesday discharge with return to [place] [facility] [place].
--- NOTE | 2019-11-06 14:00 | NUR ---
Nohemi CHICK SEXER on unit to see pt at this time.
--- NOTE | 2019-11-06 17:36 | NUR ---
P: WITHDRAWN I: ONE ON ONE, ENCOURAGE PATIENT TO ATTEND AND PARTICIPATE IN GROUP SESSION. R: PATIENT RESTING DURING GROUP SESSION. UP FOR MEALS AND RETURNED TO RESTING WITH EYES CLOSED. NO AGGRESSION. PATIENT IS ALERT TO SELF WITH CONFUSION. ABLE TO VOICE NEEDS. LONG/SHORT TERM MEMORY DEFICITS. MOOD IS HOPELESS/HELPLESS. DENIES ANY HALLUCINATIONS, DELUSIONS, HI/SI OR PAIN. NO RESPONSE TO INTERNAL STIMULI OBSERVED. MEDICATION COMPLAINT. Q 15 MINUTE SAFETY CHECKS MAINTAINED. 2 PERSON ASSIST WITH ACTIVITIES OF DAILY LIVING, INCONTINENT OF BOWEL AND BLADDER. SET UP FOR MEALS, INTAKES ARE FAIR. UP IN RAISA CHAIR FOR COMFORT. CONTINUE TO MONITOR FOR AGGRESSION, HALLUCINATIONS. PROVIDE ONE ON ONE AND REDIRECTION NEEDED.
--- NOTE | 2019-11-06 17:52 | NUR ---
PM GROUP/EXERCISE/BEADING/LEISURE PT NOT IN ATTENDNACE DUE TO RESTING IN ROOM AT THIS TIME. PT WILL CONTINUE TO BE ENCOURAGED TO ATTEND ANDPARTICIPATE IN FUTURE GROUP SESSIONS TO BEST OF PT ABILITY.
[2019-11-06 20:02] VITALS: BP 153/64
--- NOTE | 2019-11-06 20:43 | NUR ---
EVENING/STORY PT IN ATTENDNACE BUT UNABLE TO PARTICIPATE AT THIS TIME DUE TO LEVELS OF COGNITION/CONFUSION. PT EASILY REDIRECTED WITH LITTLE AGITATION/ANXIETY EXPRESSED.
--- NOTE | 2019-11-07 00:04 | NUR ---
PT MEDICATION COMPLIANT, UP TO RAISA CHAIR WITH EYES CLOSED, WHEN APPROACHED PT OPEN EYES WHEN SPOKEN TO, TOOK MEDICAITONS WITHOUT DIFFICULTY, NO SI/HI OR DELUSIONS NOTED, PT LOOKED AT THIS NURSE AND STATED "GET ME TO BED, i AM TIRED!" HS CARE PROVED BY STAFF WITHOUT DIFFICULTY
--- NOTE | 2019-11-07 05:27 | NUR ---
PT SLEPT 5 + HOURS
--- NOTE | 2019-11-07 07:00 | NUR ---
PHYSICAL THERAPY Patient seen this am for therapy visit and was relaxing semi reclined in activity room Aniya chair. Patient identified by name / and reports no new c/o's at this time. Patient transfers sit to stand with MOD A and ambulates with use of wh walker, MIN A, 30' x 1, demonstrating very slow, unsteady, festinating gait pattern. Patient needed v/c for both upright posture and walker safety / navigation, including LOB x 1 while attemting to turn. Patient also fatigues quickly and returned to Aniya chair in activity room. Patient remained semi reclined in Aniya chair with body alarm, under [facility] staff Supervision. Will continue per POC as tolerated, total treatment time 14 minutes. Devonte Dwyer, MINE SAFETY MANAGER
--- NOTE | 2019-11-07 07:16 | NUR ---
OT NOTE Pt was seen this A.M. 1:1 for 16 minute OT session with BRIM STRETCHING MACHINE OPERATOR and nursing staff present for observation only. Upon arrival pt was sitting semi reclined in the baldo chair in the quiet room. Pt identified by name and and had no complaints at this time. Pt was taken out into the hallway where he completed BUE towel exercises over all planes of motion for 1 X 10 to increase and restore maximum functional use. Throughout pt required max verbal and tactile prompts for following commands and attention to task. Multiple sit to stand transfers were completed from chair level with modA and use of w/w for UE support. Challenged pt's static standing tolerance needed for increased I in self care tasks and functional transfers. Pt was able to tolerate aprox 2 minutes at a time before sitting due to fatigue. Pt was left sitting semi reclined in the baldo chair in the dining umanzor with body alarm activated for safety and under [facility] staff supervision. Continue with POC as able. FABRICE Massey/Daniel
[2019-11-07 07:54] VITALS: BP 113/69
--- NOTE | 2019-11-07 08:00 | NUR ---
Treatment Plan meeting was held with FOSTER Romero, RN, AT, EDUCATION LIAISON-S and Chart Reader in attendance. Plan for discharge Wednesday. Pt. will return to [place] [facility] [place] at discharge.
--- NOTE | 2019-11-07 11:40 | NUR ---
AM GROUP/EXERCISE AND NATALIE PT WAS PRESENT FOR MORNING GROUP THERAPY SLEEPING SOUNDLY IN A RAISA CHAIR PUSHED UP TO THE TABLE. PT WOKE ONCE, SAID GOOD MORNING AND WENT BACK TO SLEEP
--- NOTE | 2019-11-07 15:33 | NUR ---
PM GROUP PT WAS PRESENT FOR AFTERNOON GROUP THERAPY BUT WAS SLEEPING IN A RAISA CHAIR THE ENTIRE SESSION.
--- NOTE | 2019-11-07 17:25 | NUR ---
PT ALERT TO PERSON. PT STATED I DONT KNOW FOR ALL OTHER ASSESSMENT QUESTIONS. NO OUTBURSTS OR BEHAVIORS NOTED TODAY. NO HALLUCINATIONS OE DELUSIONS NOTED. NO SI/HI NOTED. MEDICATION COMPLIANT. SEE [facility] FLOWSHEET FOR SPECIFIC MONITORING.
[2019-11-07 19:35] VITALS: BP 129/64
--- NOTE | 2019-11-07 21:55 | NUR ---
Patient alert to self only with confusion noted. Memory deficits noted. Patient sleeping but awakens easily. No overt s/s of responding to internal stimuli noted at this time. Patient compliant with HS medications without any difficulty. Redirected/reoriented when needed/appropriate. Provided 1:1 for emotional support. Plan to continue to encourage medication compliance and continue to provide emotional support. Also continue to redirect/reorient when needed/appropriate. Will continue to monitor moods/behaviors. Q 15 minute safety checks continued and maintained. See [facility] flowsheet for further documentation.
--- NOTE | 2019-11-08 00:17 | NUR ---
24 HR chart check completed.
--- NOTE | 2019-11-08 05:57 | NUR ---
Patient slept approx. 5.5 hours throughout shift. Q 15 minute safety checks continued and maintained.
--- NOTE | 2019-11-08 07:20 | NUR ---
PHYSICAL THERAPY Patient seen this am for therapy visit and was sitting up in activity room Aniya chair upon therapist arrival. Patient identified by name / and reports no new c/o's other than repeated comments of wanting to returne home. OT blood and plasma laboratory assistant was also present for observation only during PNEUMATIC SYSTEMS OPERATOR visit as patient transfers sit to stand MOD A x 2 while tolerating approx 1 minute static stand. Patient ambulated with use of wh walker, MIN A, 40'x 1, demonstrating very cautious gait pattern, "head down" posture and decreased stride. Patient returned to Aniya chair with body alarm in activity room awaiting breakfast under [facility] staff Supervision. Will continue per POC as tolerated, total treatment time 14 minutes. Devonte Dwyer, PNEUMATIC SYSTEMS OPERATOR
--- NOTE | 2019-11-08 07:32 | NUR ---
OT NOTE Pt was seen this A.M. 1:1 for 15 minute OT session with RN NEUROSURGICAL and nursing staff present for observation only. Upon arrival pt was sitting semi reclined in the baldo chair in the dining umanzor. Pt was taken out into the hallway where he completed multiple sit to stand transfers from chair level with modA X 2 and use of hand rail for UE support. Challenged pt's static standing tolerance needed for increased I in self care tasks and functional transfers, pt was able to tolerate aprox 2 minutes before sitting due to fatigue. Throughout entire session pt required verbal prompts for attention to task due to being fixated on looking for his car. Pt was left sitting upright in the baldo chair in the dining umanzor under U staff supervision and body alarm activated for saftey. Continue with POC as able. FABRICE Massey/Daniel
[2019-11-08 07:58] VITALS: BP 158/76
--- NOTE | 2019-11-08 08:00 | NUR ---
Treatment Plan meeting was held with FOSTER Romero, RN, AT, SALES ACCOUNT SPECIALIST-S and Saddle Maker. Plan for discharge /Wednesday. Pt. will return to [place] [place].
--- NOTE | 2019-11-08 10:11 | NUR ---
PT YELLING OUT, STRIKING OUT, PT ATTEMPTING TO SLIDE OUT OF CHAIR. YELLING AT THE DR. PRN GIVEN PER LETTY SIMS NP. PRN VISTARIL 50MG IM GIVEN AT THIS TIME. WILL MONITOR EFFECTIVENESS OF MEDICATION.
--- NOTE | 2019-11-08 10:45 | NUR ---
PRN VISTRAIL EFFECTIVE. PT RESTING QUIETLLY IN RAISA CHAIR AT THIS TIME. WILL CONTINUE TO MONITOR EFFECTIVENESS OF MEDICATION.
--- NOTE | 2019-11-08 11:40 | NUR ---
AM GROUP PT WAS PRESENT FOR MORNING GROUP THERAPY AND WAS VERY AGITATED WITH THE TRAY BEING LOCKED ON THE RAISA CHAIR. PT WAS VERBALLY ABUSIVE AND WAS ADRESSED BY NURSE. PT WAS GIVEN CARDS TO OCCUPY HIM BUT SOON FELL ASLEEP. PT SLEPT THE REMAINDER OF GROUP
--- NOTE | 2019-11-08 14:47 | NUR ---
Clinical Updates faxed to [facility] [place] Attn: January [phone].
--- NOTE | 2019-11-08 15:40 | NUR ---
PM GROUP PT WAS PRESENT FOR AFTERNOON GROUP THERAPY RECLINED IN A RAISA CHAIR. PT SLEPT FOR THE MOST PART BUT WOULD WAKE AND ASK, "HEY, CAN YOU TAKE ME HOME?" PT EXHIBITED NO AGITATION OR AGGRESSION WHILE IN GROUP
--- NOTE | 2019-11-08 16:45 | NUR ---
PT ALERT TO PERSON. PT STATED I DONT KNOW FOR ALL OTHER ASSESSMENT QUESTIONS. NO OUTBURSTS OR BEHAVIORS NOTED TODAY. NO HALLUCINATIONS OE DELUSIONS NOTED. NO SI/HI NOTED. MEDICATION COMPLIANT. SEE [facility] FLOWSHEET FOR SPECIFIC MONITORING.
[2019-11-08 19:49] VITALS: BP 132/64
--- NOTE | 2019-11-08 23:10 | NUR ---
P--CONFUSION, AGGRESSION, I--REORIENTED TO PLACE DATE AND TIME. REVIEWED MEDICATIONS PRIOR TO GIVING. NO BEHAVIORS NOTED THIS SHIFT R--OH OK. I AM TIRED CAN I GO TO BED. MEDICATION COMPLIANT P--MONITOR FOR CHANGES IN MOOD/BEHAVIOR/ MONITOR FOR SAFETY. CONTINUE EMOTINAL SUPPORT AND REORIENTATION.
--- NOTE | 2019-11-09 04:34 | NUR ---
24 HR chart check completed.
--- NOTE | 2019-11-09 05:25 | NUR ---
SLEPT A BROKEN 5 HOURS AND 45 MINUTES APPROX. CLIMBING OUT OF BED. CLEANED UP AND PLACED IN RAISA CHAIR AND BROUGHT TO QUIET ROOM FOR CLOSER OBSERVATION. APPEARS TO BE RESTING WELL
--- NOTE | 2019-11-09 07:20 | NUR ---
PHYSICAL THERAPY Patient seen this am for therapy visit and was resting semi reclined in Quiet room Aniya chair upon therapist arrival. Patient identified by name / and repeatedly verbalized he wanted to go home. OT senior care assistant was present for observation only this morning as patient transfers sit to stand at rail in hallway with MOD A x 2. Patient demonstrates "slouched" upright posture with head down on chin which contributes to POOR standing tolerance < 30 seconds each standing trial. Patient also ambulated with use of wh walker, MIN A, 15'x 1, demonstrating very unsteady, "stuttering" gait pattern. Patient fatigues quickly, needed Aniya chair follow and returned to activity room Aniya chair with body alarm, under [facility] staff Supervision awaiting breakfast. Will continue per POC as tolerated, total treatment time 13 minutes. Devonte Dwyer, CUSTOMER CONTACT SPECIALIST
--- NOTE | 2019-11-09 07:30 | NUR ---
OT NOTE Pt was seen this A.M. 1:1 for 15 minute OT session with RANGE OPERATOR and nursing staff present for observation only. Upon arrival pt was sitting semi reclined in the baldo chair in the quiet room. Pt identified by name and and had no complaints at this time. Pt was taken out into the hallway where he completed multiple sit to stand transfers from chair level with modA x 2 and use of hand rail for UE support. Throughout pt required constant verbal and tacitle prompts for correcting his posture and holding his head up, pt had poor carry over. Challenged pt's static standing tolerance needed for increased I in self care tasks and functional transfers, pt was able to tolerate aprox 30 seconds at a time before sitting due to fatigue. Pt was left sitting upright in the baldo chair in the dining umanzor under [facility] staff supervision with body alarm activated for safety. Continue with rec D/C plan to return to prior living. FABRICE Massey/Daniel
[2019-11-09 08:00] VITALS: BP 133/71
--- NOTE | 2019-11-09 08:00 | NUR ---
Treatment Plan meeting was held with Dr. Grayson, RN, AT, WOOD TURNING LATHE OPERATOR-S and Matlab Developer. Plan for discharge next week. Pt. will return to [place] [facility] [place] at discharge.
--- NOTE | 2019-11-09 11:59 | NUR ---
DR UPTON ON UNIT TO SEE PATIENT
--- NOTE | 2019-11-09 15:45 | NUR ---
PM GROUP PT WAS PRESENT AT THE START OF AFTERNOON GROUP THERAPY RECLINED IN A RAISA CHAIR AND COMPLAINING LOUDLY TO LET OUT OF THE CHAIR. PT'S NEEDS WERE ADDRESSED BUT PT BECAME A DISRUPTION TO THE YI MILIEU BY REPEATEDLY YELLING OUT, "HELP ME, HELP ME, HELP ME" PT WAS REMOVED FROM THE DAYROOM AND PLACED IN FRONT OF THE NURSES STATION FOR CLOSER OBSERVATION
--- NOTE | 2019-11-09 17:45 | NUR ---
ALERT TO PERSON WITH CONFUSION AND MEMORY GAPS NOTED. INTERACTIVE WITH STAFF. PT NOT BEARING WEIGHT THIS AM TO AMBULATE HOWEVER DID BETTER IN THE PM DURING HOC. MEDICATION COMPLIANT WITHOUT DIFFICULTY. BEHAVIORS MONITORED WITH Q15 MINUTE SAFETY CHECKS. SEE [facility] FLOWSHEET FOR SPECIFIC MONITORING.
[2019-11-09 19:45] VITALS: BP 122/68
--- NOTE | 2019-11-09 22:15 | NUR ---
P--CONFUSION, HELPLESS, ISOLATIVE I--TALKED ABOUT HIS DAY. MEDICATED PER ORDERS. OFFERED EMOTIONAL SUPPORT, REORIENT TO PERSON, PLACE AND TIME. R-- I AM FINE.. NO ADDITIONAL CONVERSATION P--CONTINUE EMOTIONAL SUPPORT, MONITOR FOR CHANGES IN BEHAVIOR/MOOD. MONITOR FOR SAFETY Q15 MINUTES AND PRN
--- NOTE | 2019-11-10 01:44 | NUR ---
CLIMBING OUT OF BED. UNABLE TO REDIRECT. PLACED IN RAISA CHAIR AND BROUGHT CLOSER TO NURSES STATION FOR SAFETY MONITORING
--- NOTE | 2019-11-10 02:02 | NUR ---
UP IN GERICHAIR. SLEEPING INTERMITTENTLY.
--- NOTE | 2019-11-10 02:03 | NUR ---
24 HR chart check completed.
--- NOTE | 2019-11-10 05:50 | NUR ---
CLIENT SCREAMING AND YELLING TO LET HIM GO HOME OR COMMIT SUICIDE. CALLING STAFF VULGAR NAMES. UNABLE TO REDIRECT TO PLACE AND TIME. VISTARIL GIVEN PERORDERS
--- NOTE | 2019-11-10 06:25 | NUR ---
APPEARS VISTARIL EFFECTIVE FOR ANXIETY
--- NOTE | 2019-11-10 07:35 | NUR ---
OT NOTE Attempted to see pt this A.M. for OT session and upon arrival pt was eating his breakfast. Will check back at a later time/date and continue with POC as able. FABRICE Massey/Daniel
[2019-11-10 07:45] VITALS: BP 115/62
--- NOTE | 2019-11-10 08:00 | NUR ---
Treatment Plan meeting was held with FOSTER Romero, RN, AT, MEDICAL INSURANCE CLAIMS SPECIALIST-S and Business Support Assistant. Plan for discharge Next week, Wednesday-Wednesday. Pt. will return to [facility] [place] at Discharge.
--- NOTE | 2019-11-10 09:37 | NUR ---
DR NAVARRO ON UNIT TO SEE PATIENT
--- NOTE | 2019-11-10 15:54 | NUR ---
Clinical Updates faxed to [facility] [place].
--- NOTE | 2019-11-10 16:31 | NUR ---
PHYSICAL THERAPY CO-SIGN I approve of the Physical Therapy notes written above. Sofia Mijares PT
--- NOTE | 2019-11-10 16:32 | NUR ---
OCCUPATIONAL THERAPY CO-SIGN I approve of the Occupational Therapy notes written above. ELVIS ROSAS OTR/Daniel
--- NOTE | 2019-11-10 18:38 | NUR ---
NO ADVERSE MOODS OR BEHAVIORS NOTED THIS SHIFT. PT ALERT TO PERSON ONLY, CONFUSION AND SHORT TERM MEMORY DEFICITS NOTED PER PT BASELINE. PT PLEASANT AND COOPERATIVE WITH STAFF. NO AGGRESSIVE BEHAVIORS NOTED DURING CARE. NO HALLUCINATIONS OR DELUSIONS NOTED. NO SUICIDAL THOUGHTS OR BEHAVIORS NOTED. PT UP TO A GERICHAIR, REQUIRES 2 STAFF ASSIST FOR TRANSFERS AND CARE. PT REQUIRES USE OF DILIA AT TIMES FOR TRANSFERS D/T NOT BEARING WEIGHT. PT CONTINENT OF BOWEL AND BLADDER, EPISODES OF INCONTINENCE NOTED, CARE PROVIDED NEEDED. PLAN IS TO MONITOR PT BEHAVIORS ON Q15 MIN SAFETY CHECKS, PROVIDE EMOTIONAL SUPPORT AND 1:1 FOR PT TO VOICE FEELINGS, ENCOURAGE MED COMPLIANCE.
[2019-11-10 19:28] VITALS: BP 110/70
--- NOTE | 2019-11-10 20:40 | NUR ---
AMBULATED CLIENT WITH WALKER, 2 ASSIST AND CHAIR BEHIND. HE WALKED 20 FT.
--- NOTE | 2019-11-10 20:45 | NUR ---
ANALILIA RENEWED PER JUANA STROUD NP
--- NOTE | 2019-11-10 21:28 | NUR ---
MORE INTERACTIVE WITH STAFF. ASKING QUESTIONS ABOUT HIS STAY AND LEG WEAKNESS. SEVERE SHORT TERM MEMORY AT THIS TIME. ABLE TO REPEAT WHAT HE WAS TOLD BUT ASKED AGAIN WITHIN A COUPLE MINUTES. COMPLETE BED BATH DONE
--- NOTE | 2019-11-11 00:08 | NUR ---
CLIMBING OUT OF BED, YELLING NONSENSE, PLACED IN GERICHAIR AND BROUGHT CLOSER TO NURSING STATION FOR SAFETY
--- NOTE | 2019-11-11 04:37 | NUR ---
24 HR chart check completed.
[2019-11-11 08:00] VITALS: BP 133/64
--- NOTE | 2019-11-11 12:01 | NUR ---
AM GROUP/EXERCISE/BINGO/CRAFT PT NOT IN ATTENDANCE BUT RESTING IN QUIET ROOM NEXT DOOR. PT REMAINED NEXT DOOR DUE TO DISRUPTING PEERS. PT WILL BE ENCOURAGED OT ATTEND AND PARTICIPATE IN GROUP WHEN LESS DISRUPTIVE.
--- NOTE | 2019-11-11 15:54 | NUR ---
PM GROUP/RIDDLES/CRAFT PT UNABLE TO ATTEND AT THIS TIME DUE TO LEVELS OF CONFUSION AND DISRUPTION OF PEERS. PT WILL CONTINUE TO BE ENCOURAGED TO ATTEND AND PARTICIPATEIN FUTURE GROUP SESSIONS WHEN LESS DISRUPTIVE.
--- NOTE | 2019-11-11 16:45 | NUR ---
P: PT RESTLESS, INTRUSIVE/DISRUPTIVE TO MILEUI- YELLING OUT, CURSING AND USING VULGAR LANGUAGE WITH STAFF. PT MOOD IS LABILE, ANGRY/IRRITBALE, HOPELESS/HELPLESS. I: PROVIDE EMOTIONAL SUPPORT AND 1:1 FOR PT TO VOICE FEELINGS, ENCOURAGE MED COMPLIANCE, PROVIDE LOW STIMUALTION ENVIRONMENT FOR PT TO CALM R: PT ALERT TO PERSON ONLY, CONFUSION AND SHORT TERM MEMORY DEFICITS NOTED PER PT BASELINE. PT REMAINS LABILE, CONTINUES TO YELL OUT INTERMITTENTLY. NO HALLUCINATIONS OR DELUSIONS NOTED. NO SUICIDAL THOUGHTS OR BEHAVIORS NOTED. PT UP TO A GERICHAIR, REQUIRES 1-2 STAFF FOR CARE AND TRANSERS. PT INCONTINENT OF BOWEL AND BLADDER, CARE PROVIDED NEEDED. P: MONITOR PT BEHAVIORS ON Q15 MIN SAFETY CHECKS, ENCOURAGE MED COMPLIANCE, PROVIDE EMOTIONAL SUPPORT AND 1:1 FOR PT TO VOICE FEELINGS, PROVIDE LOW STIMULATION ENVIRONMENT FOR PT TO CALM.
--- NOTE | 2019-11-11 19:35 | NUR ---
Patient yelling,throwing food,call staff bitches and whores and being disruptive to other patients. Patient placed in gerchair with tray, due to attempting to climb out chair,and in quiet room across from nurses' desk to observe moods and behaviors. Patient then swung at mental health worker when she attempted to take his vital signs. Patient continued to swing at staff,yell and patient said "this is nothing but a whorehouse and all of you are whore bitches." Attempted to redirect but was unsuccessful. All non-pharmacological interventions unsuccessful. Medicated with Vistaril IM prn given for increased agitation/aggression. Will continue to monitor moods/behaviors.
--- NOTE | 2019-11-11 20:00 | NUR ---
Patient still refusing vital signs to be obtained at this time.
--- NOTE | 2019-11-11 21:31 | NUR ---
Patient alert to self only with confusion noted. Memory deficits noted. Patient still yelling,being disruptive,and pounding on furniture. Patient still yelling "you sons of bitches and you fucking whores" to all staff. Patient in gerichair across for nurses' desk to be observed for moods/behaviors. No overt s/s of responding to internal stimuli noted at this time. Patient compliant with HS medications without any difficulty. Attempted to redirect/reorient when needed/appropriate but unsuccessful. Provided 1:1 for emotional support but patient refused by yelling obscenities and swinging at staff. Plan to continue to encourage medication compliance and continue to provide emotional support. Also continue to redirect/reorient when needed/appropriate. Will continue to monitor moods/behaviors. Q 15 minute safety checks continued and maintained. See [facility] flowsheet for further documentation.
--- NOTE | 2019-11-12 05:29 | NUR ---
Patient slept approx. 2.5 hours throughout shift. Q 15 minute safety checks continued and maintained.
[2019-11-12 07:52] VITALS: BP 137/77
--- NOTE | 2019-11-12 12:19 | NUR ---
P: YELLING OUT UP TO RAISA CHAIR, POOR MEMORY WITH ST/LT DEFICITS, I: PROVIDE HOC, HYGEINE NEEDS, REDIRECTION, MEALS, BLANKETS, REDIRECTION R: MINIMALLY EFFECTIVE IN CALMING PT FROM YELLING OR STRIKING OUT AT STAFF WITH CARE. P: CONTINUE TO MONITOR. PT CONTINUES TO TALK TO UNSEEN OTHERS, RAMBLES TO HIMSELF ALSO STATES, "I JUST WANT TO GET OUT OF BED AND GO GET THAT WORK DONE, YOU COMING WITH ME OR NOT" ENCOURAGE MEDICATION COMPLIANCE
[2019-11-12 20:00] VITALS: BP 134/70
--- NOTE | 2019-11-13 01:33 | NUR ---
Patient alert to self only with confusion noted. Memory deficits noted. Mood calm and cooperative. No overt s/s of responding to internal stimuli noted at this time. Patient compliant with HS medications without any difficulty. Redirected/reoriented when needed/appropriate. Provided 1:1 for emotional support. Plan to continue to encourage medication compliance and continue to provide emotional support. Also continue to redirect/reorient when needed/appropriate. Will continue to monitor moods/behaviors. Q 15 minute safety checks continued and maintained. See [facility] flowsheet for further documentation.
--- NOTE | 2019-11-13 05:38 | NUR ---
Patient slept approx. 9 hours throughout shift. Q 15 minute safety checks continued and maintained.
[2019-11-13 07:47] VITALS: BP 130/67
--- NOTE | 2019-11-13 08:00 | NUR ---
Treatment Plan meeting was held with Dr. Grayson, FOSTER Romero, RN, AT, NEEDLE PUNCH MACHINE OPERATOR-S and Construction Carpenters Helper. Plan for discharge Wednesday/Wednesday. Pt. will return to [place] [place].
--- NOTE | 2019-11-13 11:44 | NUR ---
AM GROUP MORNING GROUP THERAPY WAS SHORTENED DUE TO PT 1:1. PT WAS PRESENT RECLINED IN A RAISA CHAIR SLEEPING. PT DID NOT WAKE DURING GROUP
--- NOTE | 2019-11-13 12:08 | NUR ---
Spoke with Sonia Garcia Staple Cutter at [facility] [place]. Advised of Possible Discharge Wednesday/Wednesday. Discussed Discharge Plan and Faxed Clinical Updates to Facility.
--- NOTE | 2019-11-13 15:13 | NUR ---
P: AUDITORY HALLUCINATION: PATIENT STATED "CAN YOU GET BE OUT OF THIS CAR?" I: ONE ON ONE AND REDIRECTION/ORIENTATION PROVIDED R: EFFECTIVE. PATIENT IS ALERT AND ORIENTED TO PERSON WITH CONFUSION; ABLE TO VOICE NEEDS. LONG/SHORT TERM MEMORY DEFICITS. MOOD IS STABLE. NO VOICED STATEMENTS OF HI/SI OR PAIN. RESPONDING TO INTERNAL STIMULI. MEDICATION COMPLIANT. Q 15 MINUTE SAFETY CHECKS MAINTAINED. 2 PERSON ASSIST WITH ACTIVITIES OF DAILY LIVING, INCONTINENT OF BOWEL AND BLADDER, SET UP FOR MEALS, 1 PERSON ASSIST NEEDED. INTAKES VARY. 2 PERSON ASSIST WITH TRANSFERS VIA MECHANICAL LIFT. UP IN RAISA CHAIR FOR COMFORT. CONTINUE TO MONITOR FOR AGGRESSION; PROVIDE ONE ON ONE AND REDIRECTION NEEDED.
--- NOTE | 2019-11-13 15:40 | NUR ---
PM GROUP PT DID NOT ATTEND AFTERNOON GROUP THERAPY.PT WAS RESTING IN A QUIET ROOM.
[2019-11-13 19:45] VITALS: BP 128/74
--- NOTE | 2019-11-13 20:39 | NUR ---
EVENING/POSITIVE THOUGHTS PT IN ATTENDANCE BUT UNABLE TO PARTICIPATE DUE TO SLEEPING AND LEVELS OF COGNITION. PT WILL CONTINUE TO ATTEND AND PARTICIPATE TO BEST OF PT ABILITY.
--- NOTE | 2019-11-14 01:55 | NUR ---
24 HR chart check completed.
--- NOTE | 2019-11-14 07:05 | NUR ---
PHYSICAL THERAPY Patient seen this am for therapy visit and was sitting semi reclined in activity room Aniya chair upon therapist arrival. Patient identified by name / and was very pleasant, talkative / alert this morning. OT physician assistant surgery was also present for observation only this session as patient transported via Aniya chair to [facility] for gait ex. Patient transfers sit to stand MIN A x 2, and ambulates MIN A, use of wh walker, 25'x 2, while demonstrating decreased stride, needing v/c for "head up" posture. Patient also very cautious during gait ex, however demonstrated improved smoother gait pattern this session. Patient still fatigues quickly and returned to Aniya chair in activity room awaiting breakfast, body alarm, under [facility] staff Supervision. Will continue per POC as tolerated, total treatment time 15 minutes. Devonte Dwyer, INTERNATIONAL ACCOUNT REPRESENTATIVE
--- NOTE | 2019-11-14 07:15 | NUR ---
OT NOTE Pt was seen this A.M. 1:1 for 15 minute OT session with DIRECTOR TRAFFIC AND PLANNING and nursing staff present for observation only. Upon arrival pt was sitting semi reclined in the baldo chair in the dining umanzor asleep. Pt was easily aroused and identified by name and . Pt had no complaints at this time. Pt was taken out into the hallway where he completed multiple sit to stand transfers from chair level with Grace X 2 and use of hand rail for UE support. Challenged pt's static standing tolerance needed for increased I in self care tasks and functional transfers. Pt was able to tolerate aprox 90 seconds at a time before sitting due to fatigue. Functional mobility was then completed to the bedroom with Grace and use of w/w for UE support. Pt was left sitting upright in the baldo chair in the dining umanzor under [facility] staff supervision with body alarm activated for safety. COntinue with POC as able. FABRICE Massey/Daniel
[2019-11-14 07:31] VITALS: BP 142/67
--- NOTE | 2019-11-14 08:00 | NUR ---
Treatment Plan meeting was held with Dr. Grayson, RN, AT, BURNISHER AND BUMPER-S and Butter Maker. Plan for discharge Wednesday. Pt, will return to [place] [facility] [place].
--- NOTE | 2019-11-14 08:34 | NUR ---
DR HE ON UNIT TO ASSESS PT, UPDATE PROVIDED.
--- NOTE | 2019-11-14 10:59 | NUR ---
P: PT YELLS UT AT INTERMITTENTLY. PT RESTLESS, MOOD IS LABILE. PT REFUSED TO PARTICIPATE IN MORNING GROUPS/ACTIVITIES. I: PROVIDE LOW STIMULATION ENVIRONMENT FOR PT TO CALM, ENCOURAGE GROUP PARTICIPATION AND SOCIALIZATION, PROVIDE DIVERSIONAL ACTIVITIES R: PT ALERT TO PERSON AND PLACE, KNOWING HE IS IN THE HOSPITAL. PT CALMS AND YELLING OUT STOPS ONCE PLACED IN BED. PT CONTINUES TO REFUSE TO PARTICIPATE IN MORNING GROUP. PT UP TO A GERICHAIR, WILL AMBULATE SHORT DISTANCES WITH STAFF ASSISTANCE AT TIMES, PT WILL NOT BEAR WEIGHT AT TIMES AND CAN REQUIRE A DILIA FOR TRANSFERS. PT INCONTINENT OF BOWEL AND BLADDER, CARE PROVIDED NEEDED. P: MONITOR PT BEHAVIORS ON Q15 MIN SAFETY CHECKS, ENCOURAGE MED COMPLIANCE, ENCOURAGE GROUP PARTICIPATION AND SOCIALIZATION, PROVIDE DIVERSIONAL ACTIVITES, PROVIDE LOW STIMULATION ENCVIRONMENT FOR PT TO CALM, PROVIDE EMOTIONAL SUPPORT AND 1:1 FOR PT TO VOICE FEELINGS.
--- NOTE | 2019-11-14 11:37 | NUR ---
AM GROUP/MUSIC THERAPY PT DID NOT ATTEND MORNING GROUP THERAPY. PT WAS IN BED RESTING.
--- NOTE | 2019-11-14 15:06 | NUR ---
Shift chart check completed.
--- NOTE | 2019-11-14 15:34 | NUR ---
PM GROUP PT WAS NOT PRESENT FOR AFTERNOON GROUP THERAPY. PT IS UNABLE TO ATTEND OR PARTICIPATE DUE TO COGNITIVE IMPAIRMENT.
--- NOTE | 2019-11-14 16:17 | NUR ---
PATIENT COMPLAINING OF RIGHT HIP PAIN, NOT ABLE TO RATE PAIN. PRN TYLENOL 650MG PO GIVEN.
--- NOTE | 2019-11-14 16:21 | NUR ---
Left Voice Message for Pt. Dilia to inform her that patient was discharging tommorow. Notified Nursing Staff that I was unable to secure the message to .
--- NOTE | 2019-11-14 17:16 | NUR ---
PRN TYLENOL EFFECTIVE, NO FURTHER COMPLAINTS OF PAIN.
--- NOTE | 2019-11-14 17:50 | NUR ---
PRN MOM 30ML PO GIVEN DUE TO NO BOWEL MOVEMENT IN 3 DAYS.
[2019-11-14 19:41] VITALS: BP 127/62
--- NOTE | 2019-11-14 20:34 | NUR ---
EVENING/MUSIC/YAHTZEE PT ENCOURAGED TO PARTICIPATE IN ACTIVITY BUT PT PREOCCUPIED ON GOING TO BED. PT EXPRESSED NO AGGRESISON OR AGITATION AT THIS TIME.
--- NOTE | 2019-11-14 21:00 | NUR ---
PERIODS OF YELLING OUT AND POUNDING ON TRY. REDIRECTION ONLY SUCCESSFUL FOR SHORT TIME. MEDICATION COMPLIANT. FOOD AND FLUIDS PROVIDED WILL MONITOR FOR CHANGES IN BEHAVIOR/MODD MONITOR Q 15 MINUTES AND PRN FOR SAFETY
--- NOTE | 2019-11-15 00:20 | NUR ---
24 HR chart check completed.
[2019-11-15 07:51] VITALS: BP 124/69
--- NOTE | 2019-11-15 08:00 | NUR ---
Treatment Plan meeting was held with Dr. Grayson, RN, ADVANCED RESEARCH PROGRAMS DIRECTOR-S and Workforce Planner. Plan for discharge today with return to [place] [facility] [place]. Pt. Dilia Notified of Discharge today and pattern grader supervisor time 1:00 p.m.
[2019-11-15] MEDS ORDERED: VITAMIN D3125 MC1 PO (08:48)
[2019-11-15] MEDS ORDERED: NYAMYC15 GM T (08:48)
[2019-11-15] MEDS ORDERED: EXELON13.3 MG/21 T (09:26)
[2019-11-15] MEDS ORDERED: RISPERIDONE0.25 M2 PO (09:26)
[2019-11-15] MEDS ORDERED: MEMANTINE HCL10 MG PO (09:26)
[2019-11-15] MEDS ORDERED: DIVALPROEX SOD125 M1 PO (09:26)
[2019-11-15] MEDS ORDERED: ROZEREM8 MG PO (09:26)
[2019-11-15] MEDS ORDERED: RISPERIDONE1 MG PO (09:26)
[2019-11-15] MEDS ORDERED: MIRTAZAPINE15 M2 PO (09:26)
--- NOTE | 2019-11-15 10:20 | NUR ---
DIscharge Paperwork Faxed to [facility] [place] Attn: January [phone].
--- NOTE | 2019-11-15 11:34 | NUR ---
PRN MOM 30ML PO GIVEN AND PRUNE JUICE 240CC GIVEN DUE TO NO BOWEL MOVEMENT. PATIENT DOES NOT COMPLAIN OF BEING CONSTIPATED. BOWEL SOUNDS ACTIVE X 4. NO ABDOMINAL DISTENTION OBSERVED. DR. FREEMAN NOTIFIED.
--- NOTE | 2019-11-15 12:35 | NUR ---
PARVEEN AT [facility] [employer] [place] GIVEN NURSE TO NURSE REPORT.
--- NOTE | 2019-11-15 13:00 | NUR ---
LIFE TEAM AMBULANCE SERVICE PRESENT, PATIENT ASSISTED TO [facility], ALL BELONGING AND DISCHARGE INSTRUCTIONS SENT WITH PATIENT.
--- NOTE | 2019-11-15 14:39 | NUR ---
OCCUPATIONAL THERAPY CO-SIGN I approve of the Occupational Therapy notes written above. JENSEN CORADO, OTR/L
--- NOTE | 2019-11-16 15:31 | NUR ---
PHYSICAL THERAPY CO-SIGN I approve of the Physical Therapy notes written above. Sofia Mijares PT
== END 2019-11-15 12:58 | disposition other institution (70) | DRG 885 ==
LOC: 3N 16:14
PROVIDERS: Registered Nurse; ADMIT Psychiatry & Neurology Psychiatry
PROC: 0HBRXZZ Excision of Toe Nail, External Approach (ICD-10-PCS; principal; 2019-10-31)
DX: F33.3 Major depressive disorder, recurrent, severe with psychotic symptoms (principal); N17.0 Acute kidney failure with tubular necrosis; R45.851 Suicidal ideations; E44.0 Moderate protein-calorie malnutrition; I48.20 Chronic atrial fibrillation, unspecified; F02.81 Dementia in other diseases classified elsewhere, unspecified severity, with behavioral disturbance; F63.81 Intermittent explosive disorder; G30.9 Alzheimer's disease, unspecified; I10 Essential (primary) hypertension; E55.9 Vitamin D deficiency, unspecified; M19.90 Unspecified osteoarthritis, unspecified site; B35.1 Tinea unguium; L85.3 Xerosis cutis; F41.9 Anxiety disorder, unspecified; D64.9 Anemia, unspecified; I73.9 Peripheral vascular disease, unspecified; E78.5 Hyperlipidemia, unspecified; I25.10 Atherosclerotic heart disease of native coronary artery without angina pectoris; B35.6 Tinea cruris; G89.29 Other chronic pain; Z88.7 Allergy status to serum and vaccine; Z88.8 Allergy status to other drugs, medicaments and biological substances; Z91.030 Bee allergy status; Z87.891 Personal history of nicotine dependence; Z79.899 Other long term (current) drug therapy